=== PATIENT | male | born 1955 | race Caucasian/White ===

== ENCOUNTER → 2023-12-19 | Outpatient (CLI) | payer MEDICARE, SELFPAY ==
--- NOTE | 2023-12-19 14:50 | ECHOD_ITS ---
Reason For Study: MURMUR Procedure This was a 2D Doppler, Color Flow transthoracic echocardiogram. Exam performed in department. Left Ventricle Normal LV size. Left ventricular systolic function is normal. The estimated ejection fraction is 65 %. Stage 1 diastolic dysfunction. No regional wall motion abnormalities noted. Right Ventricle Normal RV size. Normal systolic function. Atria Normal left atrium. Normal right atrium. Mitral Valve Normal mitral valve. Tricuspid Valve Normal tricuspid valve. Aortic Valve Normal aortic valve. Pulmonic Valve Normal pulmonic valve. Great Vessels Normal aortic root. The pulmonary artery is normal size. Inferior vena cava collapse with respiration. Pericardium/Pleural No pericardial effusion. MMode/2D Measurements & Calculations LAV(MOD-sp4): 30.4 ml LVAd ap4: 27.0 cm2 SV(MOD-sp4): 56.1 ml LVLd ap4: 6.7 cm EDV(MOD-sp4): 87.7 ml EDV(sp4-el): 92.2 ml LVAs ap4: 15.4 cm2 LVLs ap4: 6.2 cm ESV(MOD-sp4): 31.5 ml ESV(sp4-el): 32.4 ml EF(MOD-sp4): 64.0 % EF(sp4-el): 64.9 % SV(sp4-el): 59.9 ml LA A4 area: 13.5 cm2 Time Measurements MV dec time: 0.22 sec Doppler Measurements & Calculations MV E max bob: 55.5 cm/sec Lat Peak E' Bob: 10.8 cm/sec Med Peak E' Bob: 6.5 cm/sec MV A max bob: 72.8 cm/sec E/E' lat: 5.2 E/E' med: 8.6 MV E/A: 0.76 Ao V2 max: 106.4 cm/sec LV V1 max: 97.1 cm/sec MV dec slope: 256.0 cm/sec2 Ao max P.5 mmHg LV V1 max P.8 mmHg Ao V2 mean: 67.0 cm/sec LV V1 mean P.7 mmHg Ao mean P.2 mmHg LV V1 mean: 58.3 cm/sec Ao V2 VTI: 23.6 cm LV V1 VTI: 20.8 cm AV (velocity ratio): 0.88 MR max bob: 79.7 cm/sec PA V2 max: 78.9 cm/sec MR max P.5 mmHg PA V2 mean: 56.0 cm/sec MR mean bob: 46.4 cm/sec MR mean P.99 mmHg MR VTI: 29.1 cm ECHO/Echo Complete Interpretation Summary Normal LV size. Left ventricular systolic function is normal. The estimated ejection fraction is 65 %. Stage 1 diastolic dysfunction. Ordering Physician: Damir Hairston Referring Physician: Damir Hairston Performed By: Ange Pearson RCS
== END | disposition home or self-care (01) ==
PROVIDERS: PCP Family Medicine; Referring Provider Internal Medicine Cardiovascular Disease; Visit Provider Internal Medicine Cardiovascular Disease
DX: I47.10 Supraventricular tachycardia, unspecified (principal); R01.1 Cardiac murmur, unspecified
CPT/HCPCS: 93306

== ENCOUNTER → 2025-01-12 | Outpatient (CLI) | payer MEDICARE, SELFPAY ==
[2025-01-12 15:59] LABS: Absolute Neutrophil Count 5.7 X10^3/uL (2.0-7.7); Basophil# 0.06 X10^3/uL; Basophil% 0.7 % (0-1); Eosinophil# 0.26 X10^3/uL; Hematocrit 44.3 % (40-54); Hemoglobin 15.4 g/dL (13.0-16.5); Lymphocyte % 20.6 % (19-41); Mean Corp Hgb Conc 34.8 g/dL (32-36); Mean Corpuscular Hgb 31.2 pg (27.0-32.0); Mean Corpuscular Volume 89.9 fL (80-94); Monocyte# 0.87 X10^3/uL; NRBC Flagged by Analyzer 0 % (0-5); Neutrophil # 5.72 X10^3/uL (2.7-7.7); Neutrophil % 65.5 % (47-70); Platelet Count 267 K/mm3 (150-450); RBC Distribution Width CV 13.9 % (11.6-14.6); RBC Distribution Width SD 45.5 fl (35.1-43.9); Red Blood Count 4.93 M/mm3 (4.6-6.2); White Blood Count 8.7 K/mm3 (4.4-11.0)
[2025-01-12 16:38] LABS: Thyroid Stim Hormone (TSH) 0.772 uIU/mL (0.300-4.200)
[2025-01-12 17:16] LABS: Anion Gap 10 (5-15); BUN 17 mg/dL (4-19); BUN/Creat Ratio 19.6 RATIO (10-20); Calcium,Total 9.9 mg/dL (7.6-11.0); Carbon Dioxide 26.5 mmol/L (21.0-32.0); Chloride 104 mmol/L (98-108); Creatinine, Serum 0.87 mg/dL (0.70-1.20); EST Glomerular Filtration Rate 94 (>60); Glucose 74 mg/dL (70-99); Potassium 4.2 mmol/L (3.3-5.1); Sodium Level 140 mmol/L (133-145)
== END | disposition home or self-care (01) ==
LOC: LAB 15:31
PROVIDERS: PCP Family Medicine; Referring Provider Physician Assistant Medical; Visit Provider Physician Assistant Medical
DX: R06.09 Other forms of dyspnea (principal); R53.83 Other fatigue
CPT/HCPCS: 36415; 80048; 84443; 85025

== ENCOUNTER 2025-02-01 17:26 | Emergency (ER) | payer MEDICARE, SELFPAY ==
[2025-02-01 17:27] VITALS: BP 154/78; PULSE 89; RESP 16; TEMP 36.6; O2SAT 99; BMI 23.6
--- NOTE | 2025-02-01 18:55 | EX.ED.DYSGE1 ---
HPI History of Present Illness Chief Complaint: Complaint Informant: patient Onset/Context/Timing Onset: Today Context: Gradual Onset Timing: Continuous Quality: Burning Location: Urethra Worsened by: Attempted urination Relieved by: Nothing Narrative Narrative: Patient presents with urinary retention that began today. Patient had urinary retention last week and had a Figueroa catheter placed at a different emergency department. Patient followed up with his urologist, Dr. Myers today who remove the Figueroa catheter. Patient states he has been unable to urinate over the past 9-1/2 hours. Patient denies any fevers or chills. Patient denies any nausea or vomiting. Patient states he does have some burning when he attempts to urinate. Patient denies any back pain or flank pain. [facility] Medical History Fatigue EAGLE (dyspnea on exertion) Abnormality of gait Ataxia Stroke SVT (supraventricular tachycardia) Pulmonary embolism and infarction Snoring Intracranial abscess Essential hypertension Elevated PSA Home Medications ?Medication ?Instructions ?Recorded ?Last Taken ?Type amlodipine 10 mg tablet (Norvasc) 10 mg PO DAILY 10/20/23 02/01/25 History aspirin 81 mg tablet,delayed 81 mg PO DAILY 10/20/23 02/01/25 History release (Adult Aspirin Regimen) lisinopril 20 mg tablet 20 mg PO DAILY 10/20/23 02/01/25 History garlic 300 mg capsule 300 mg PO DAILY 11/10/23 02/01/25 History ciprofloxacin HCl 500 mg tablet 500 mg PO BID #6 TABLETS 02/01/25 Unknown Rx clotrimazole 1 % topical cream 1 applic topical BID 02/01/25 Unknown History finasteride 5 mg tablet 5 mg PO DAILY 02/01/25 02/01/25 History tamsulosin 0.4 mg capsule 0.4 mg PO QHS 02/01/25 01/31/25 History terbinafine HCl 250 mg tablet 250 mg PO DAILY 02/01/25 Unknown History Allergy/AdvReac Type Severity Reaction Status Date / Time No Known Allergies Allergy Verified 01/12/25 15:01 Family History Father Cancer Mother Alzheimer's disease Surgical History History of colonoscopy History of brain surgery Social History Smoking Status: Former smoker Smokeless tobacco user: other alcohol intake: never substance use type: does not use caffeine: Yes Type: coffee Number of servings: 3 ROS ROS ED Constitutional Constitutional ED: Denies chills or fever(s) Eyes Eyes: Denies blurry vision or change in vision ENT ENT ED: Denies rhinorrhea or sore throat Cardiovascular Cardiovascular: Denies chest pain or palpitations Respiratory/Chest Respiratory/Chest: Denies cough or dyspnea Gastrointestinal Gastrointestinal: Denies nausea or vomiting Genitourinary Genitourinary ED: Reports dysuria; Denies hematuria Musculoskeletal Musculoskeletal: Denies back pain or neck pain Integumentary Denies abscess or rash Neurologic Neurologic: Denies headache(s) or weakness Allergic/Immunologic Allergic/Immunologic ED: Denies mouth swelling or urticaria EXAM Physical Exam Const Vital Signs: 02/01/25 17:27 02/01/25 19:26 02/01/25 20:47 Temperature 98 F 98 F Temperature Source Oral Pulse Rate 89 67 80 Respiratory Rate 16 18 18 Blood Pressure 154/78 H 148/87 H 160/75 H Blood Pressure Mean 103 107 103 Pulse Ox 99 95 99 Oxygen Delivery Method Room Air Room Air Positive well nourished and well developed General Appearance ED: well developed and NAD HEENT Reports moist mucous membranes Neck supple and no JVD Resp normal respiratory effort and clear to auscultation bilaterally Cardio regular rate and regular rhythm GI non-tender and non-distended Palpation: soft Neuro oriented x3, CN's II-XII intact bilaterally and no sensory deficits noted Sensorium / Orientation: alert Motor Exam: strength 5/5 throughout Psych mental status grossly normal MDM MDM MDM Narrative Medical decision making narrative: Differential diagnosis includes urinary retention, urinary tract infection, and BPH. Urinalysis will be obtained to assess for urinary tract infection. Bladder scan was performed and there was 653 cc in his bladder. Figueroa catheter was inserted. There was 700 cc of urine output. History & Record Review Additional record(s) reviewed:: Prior outpatient record and Prior labs Lab Data Attestation: I reviewed the patient's lab results. Lab results narrative: Urinalysis was reviewed. Leukocyte esterase was 25. There are 10-25 white blood cells and 3+ bacteria. Nitrates were negative. Labs: Laboratory Results - last 24 hr 02/01/25 19:00 Urine Color Yellow Urine Clarity Sl Cldy Urine pH 7.0 Ur Specific [place] 1.010 Urine Protein 30 H Urine Glucose (UA) Normal Urine Ketones Negative Urine Occult Blood 50 H Urine Nitrite Negative Urine Bilirubin Negative Urine Urobilinogen Normal Ur Leukocyte Esterase 25 H Urine RBC 0 SEEN Urine WBC 10-25 SEEN Ur Squamous Epith Cells 0-5 SEEN Amorphous Sediment 1+ Urine Bacteria 3+ Hyaline Casts 0-5 SEEN Urine Mucus 0 SEEN Additional Tests and Interventions Additional Tests or Interventions: Urine culture was ordered. Treatment and Re-Evaluation :: Patient was advised of his findings. Patient was given a leg bag. Patient was given a dose of Cipro here. Patient was given a prescription for a short course of Cipro. Patient was instructed to follow-up with Dr. Myers in 3 to 5 days. Patient was instructed to return if worse in any way. Patient understood and was agreeable with the plan. All questions were answered. Discharge Plan Triage Chief Complaint: Complaint ED Provider: Bjorn Lewis Dx/Rx/DC Orders Clinical Impression: Acute urinary retention, Urinary tract infection, Essential hypertension Instructions: ED Urinary Retention, Male Prescriptions: New ciprofloxacin HCl 500 mg tablet 500 mg PO BID Qty: 6 0RF No Action amlodipine [Norvasc] 10 mg tablet 10 mg PO DAILY lisinopril 20 mg tablet 20 mg PO DAILY aspirin [Adult Aspirin Regimen] 81 mg tablet,delayed release (DR/EC) 81 mg PO DAILY garlic 300 mg capsule 300 mg PO DAILY clotrimazole 1 % cream 1 applic topical BID terbinafine HCl 250 mg tablet 250 mg PO DAILY Patient Comments: HAS NOT TAKEN YET Rx Instructions: PT TAKES FIRST OF MONTH tamsulosin 0.4 mg capsule 0.4 mg PO QHS finasteride 5 mg tablet 5 mg PO DAILY Primary Care Provider: Matthew Alford Referrals: Wally Myers MD [Med Staff - Active Staff] - 3-5 Days Matthew Alford MD [Primary Care Provider] - Print Language: Eritrean Disposition Disposition: Home, Self Care Discharge Date/Time: 02/01/25 20:47
[2025-02-01 19:12] LABS: Mucous, Urine 0 SEEN /hpf (<or=2+); Red Blood Cells-Urine 0 SEEN /hpf (0-5)
[2025-02-01 19:19] LABS: Glucose, Dipstick Normal (Normal); Ketone-Dipstick Negative (Negative); Leukocyte Esterase-Dipstick 25 /ul (Negative); Nitrite-Dipstick Negative (Negative); Occult Blood-Urine 50 /ul (Negative); Protein-Dipstick 30 mg/dl (Negative); Urine Bilirubin Dipstick Negative (Negative); Urine Urobilinogen Normal (Normal)
[2025-02-01 19:26] VITALS: BP 148/87; PULSE 67; RESP 18; O2SAT 95
[2025-02-01 19:27] LABS: Color, Urine Yellow (Yellow); Urine Clarity Sl Cldy (Clear)
[2025-02-01 19:59] LABS: White Blood Cells 10-25 SEEN /hpf (0-5)
[2025-02-01 20:00] LABS: Bacteria 3+ /hpf (None Seen)
[2025-02-01 20:01] LABS: Squamous Epithelial Cells - UA 0-5 SEEN /hpf (0-5)
[2025-02-01 20:03] LABS: Amorphous Sediment 1+; Hyaline Cast 0-5 SEEN /lpf (0-5)
[2025-02-01] MEDS: Ciprofloxacin 500 MG Tablet PO (20:45)
[2025-02-01 20:47] VITALS: BP 160/75; PULSE 80; RESP 18; TEMP 36.6; O2SAT 99
== END 2025-02-01 20:47 | disposition home or self-care (01) ==
PROVIDERS: Emergency Provider Emergency Medicine; PCP Family Medicine; Visit Provider Emergency Medicine
DX: R33.9 Retention of urine, unspecified (principal); N39.0 Urinary tract infection, site not specified; I10 Essential (primary) hypertension; Z87.891 Personal history of nicotine dependence; Z79.82 Long term (current) use of aspirin; Z79.899 Other long term (current) drug therapy; Z86.73 Personal history of transient ischemic attack (TIA), and cerebral infarction without residual deficits
CPT/HCPCS: 81001; 87077; 87086; 87088; 87186; 99282

== ENCOUNTER 2025-02-05 13:12 | Emergency (ER) | payer MEDICARE, SELFPAY ==
[2025-02-05 13:13] VITALS: BP 165/78; PULSE 64; RESP 16; TEMP 36.4; O2SAT 98; BMI 24.3
--- NOTE | 2025-02-05 14:12 | EDS_ITS ---
HPI History of Present Illness Chief Complaint: Complaint Detail of Chief Complaint: Small knot of blood in the Figueroa bag. Informant: patient Pain Onset: Today Context: Gradual Onset Current Severity: Mild Maximum Severity: Mild Narrative Narrative: 69-year-old male history of CVA, PE, hypertension on aspirin. On the was in [place] had urinary retention. A Figueroa catheter placed. Followed up with local urology. Had his catheter removed and he developed urinary retention again. Presented this emergency department on 520 and 18 [place] Figueroa catheter placed. He was started on Cipro twice a day which she just finished yesterday. Today noticed a small amount of blood in his urine. Denies any other co mplaints. Prior similar symptoms: No Recent Illness/Hospitalization: No PFSH [facility] Medical History Fatigue EAGLE (dyspnea on exertion) Abnormality of gait Ataxia Stroke SVT (supraventricular tachycardia) Pulmonary embolism and infarction Snoring Intracranial abscess Essential hypertension Elevated PSA Home Medications ?Medication ?Instructions ?Recorded ?Last Taken ?Type amlodipine 10 mg tablet (Norvasc) 10 mg PO DAILY 10/2002/01/25 History aspirin 81 mg tablet,delayed 81 mg PO DAILY 10/20/23 0 02/01/25 History release (Adult Aspirin Regimen) lisinopril 20 mg tablet 20 mg PO DAILY 10/20/2301/14 History garlic 300 mg capsule 300 mg PO DAILY 11/10/23 History ciprofloxacin HCl 500 mg tablet 500 mg PO BID #6 TABLE TS 02/01/25 Unknown Rx clotrimazole 1 % topical cream 1 applic topical BID Unknown History finasteride 5 mg tablet 5 mg PO DAILY 02/01/2502/01 History tamsulosin 0.4 mg capsule 0.4 mg PO QHS 02/01/2501/31 History terbinafine HCl 250 mg tablet 250 mg PO DAILY 02/01/25 Unknown History Allergy/AdvReac Type Severity Reaction Status Date / Time No Known Allergies Allergy Verified 01/12/25 15:01 Family History Father Cancer Mother Alzheimer's disease Surgical History History of colonoscopy History of brain surgery Social History Smoking Status: Former smoker Smokeless tobacco user: other alcohol intake: never substance use type: does not use caffeine: Yes Type: coffee Number of servings: 3 ROS ROS ED ROS Narrative Denies recent illness. Constitutional Constitutional ED: Denies chills or fever(s) ENT ENT ED: Denies ear pain Cardiovascular Cardiovascular: Denies chest pain
--- NOTE | 2025-02-05 14:12 | EX.ED.GUMALE ---
HPI History of Present Illness Chief Complaint: Complaint Detail of Chief Complaint: Small knot of blood in the Figueroa bag. Informant: patient Pain Onset: Today Context: Gradual Onset Current Severity: Mild Maximum Severity: Mild Narrative Narrative: 69-year-old male history of CVA, PE, hypertension on aspirin. On the was in [place] had urinary retention. A Figueroa catheter placed. Followed up with local urology. Had his catheter removed and he developed urinary retention again. Presented this emergency department on 520 and 18 [place] Figueroa catheter placed. He was started on Cipro twice a day which she just finished yesterday. Today noticed a small amount of blood in his urine. Denies any other complaints. Prior similar symptoms: No Recent Illness/Hospitalization: No PFSH [facility] Medical History Fatigue EAGLE (dyspnea on exertion) Abnormality of gait Ataxia Stroke SVT (supraventricular tachycardia) Pulmonary embolism and infarction Snoring Intracranial abscess Essential hypertension Elevated PSA Home Medications ?Medication ?Instructions ?Recorded ?Last Taken ?Type amlodipine 10 mg tablet (Norvasc) 10 mg PO DAILY 10/20/23 02/01/25 History aspirin 81 mg tablet,delayed 81 mg PO DAILY 10/20/23 02/01/25 History release (Adult Aspirin Regimen) lisinopril 20 mg tablet 20 mg PO DAILY 10/20/23 02/01/25 History garlic 300 mg capsule 300 mg PO DAILY 11/10/23 02/01/25 History ciprofloxacin HCl 500 mg tablet 500 mg PO BID #6 TABLETS 02/01/25 Unknown Rx clotrimazole 1 % topical cream 1 applic topical BID 02/01/25 Unknown History finasteride 5 mg tablet 5 mg PO DAILY 02/01/25 02/01/25 History tamsulosin 0.4 mg capsule 0.4 mg PO QHS 02/01/25 01/31/25 History terbinafine HCl 250 mg tablet 250 mg PO DAILY 02/01/25 Unknown History Allergy/AdvReac Type Severity Reaction Status Date / Time No Known Allergies Allergy Verified 01/12/25 15:01 Family History Father Cancer Mother Alzheimer's disease Surgical History History of colonoscopy History of brain surgery Social History Smoking Status: Former smoker Smokeless tobacco user: other alcohol intake: never substance use type: does not use caffeine: Yes Type: coffee Number of servings: 3 ROS ROS ED ROS Narrative Denies recent illness. Constitutional Constitutional ED: Denies chills or fever(s) ENT ENT ED: Denies ear pain Cardiovascular Cardiovascular: Denies chest pain Respiratory/Chest Respiratory/Chest: Denies cough Gastrointestinal Gastrointestinal: Denies abdominal pain Genitourinary Genitourinary ED: Reports hematuria; Denies dysuria Musculoskeletal Musculoskeletal: Denies arthralgias Integumentary Denies abscess Neurologic Neurologic: Denies headache(s) Psychiatric Psychiatric: Denies anxiety or depression Endocrine Endocrinology: Denies polydipsia Hematologic/Lymphatic Hematologic/Lymphatic: Denies easy bleeding, easy bruising or lymphadenopathy Allergic/Immunologic Allergic/Immunologic ED: Denies mouth swelling, tongue swelling or urticaria EXAM Physical Exam Narrative Exam Narrative: Appearance of 9-year-old male. Vital signs stable afebrile. HEENT exam pupils round react light. Mytrex members. Lungs clear to auscultation bilateral. Heart regular rhythm rate about 65 no murmur. Chest wall ribs nontender. Abdomen soft nontender. External exam shows 18 [place] Figuero[address] catheter in place. Mildly cloudy. There is no gross clots or bright red blood currently in the Figueroa bag. His urethra is unremarkable with the Figueroa in place. Moving all 4 extremities. Nontender no edema. Neurologically he is awake and alert. Answer questions following commands. Const Vital Signs: 02/05/25 13:13 Temperature 97.6 F L Temperature Source Oral Pulse Rate 64 Respiratory Rate 16 Blood Pressure 165/78 H Blood Pressure Mean 107 Pulse Ox 98 Oxygen Delivery Method Room Air Positive well nourished and well developed; Negative for obese, cachectic, contractures or unkempt General Appearance ED: well developed; Negative for unkempt, cachectic, contractures or pallor Nutritional Appearance: Negative for cachectic or obese HEENT Reports moist mucous membranes normocephalic and atraumatic Eyes PERRL and EOMs intact bilaterally General Eye ED: Negative for pale conjunctiva or scleral icterus Neck no lymphadenopathy, supple and no JVD General: Negative for tenderness Resp normal respiratory effort and clear to auscultation bilaterally Effort and Inspection: Negative for retractions Auscultation: Negative for rales, rhonchi, wheezes or diminished lung sounds Cardio regular rate, regular rhythm, S1 normal heart sound, S2 normal heart sound and no murmurs Rate: Negative for bradycardia or tachycardic Rhythm: Negative for abnormal rhythm Heart Sounds: Negative for other GI non-tender, non-distended and no masses Inspection: Negative for abdominal distention Auscultation: normoactive bowel sounds Palpation: soft; Negative for tender or guarding no CVA tenderness Back/Spine no CVA tenderness Extremity normal to inspection General Extremety ED: Negative for edema, pulses abnormal or tenderness General Extremity: Negative for edema or pulses abnormal Neuro oriented x3, CN's II-XII intact bilaterally, moves all extremities and no focal motor deficits Sensorium / Orientation: alert, oriented to person, oriented to place and oriented to time; Negative for orientation impaired, confused, lethargic or stuporous Motor Exam: strength 5/5 throughout Psych mental status grossly normal Appearance: Negative for unkempt Attitude: No agitated Mood & Affect: Negative for depressed, anxious or tearful Thought Process: normal thought process Thought Content: normal thought content Skin General Skin Exam: Negative for jaundice or pallor Trauma: Negative for abrasion or laceration MDM MDM MDM Narrative Medical decision making narrative: 69-year-old male has a small amount of blood in his Figueroa. He had Figueroa placed on the removed he failed and needed Figueroa replaced again for recurrent urinary retention on the and even just came off antibiotics for UTI that was found the also. His exam otherwise is benign. Unremarkable blood counts about 4 days ago. I do not think he needs labs other than his urine checked to see if he still has the infection. Will irrigate his Figueroa to make sure it is flowing well. It appears to be there is urine in the bag. There is no large blood or clots. Repeat exam no change. Given the patient just finished his recent antibiotic dose for UTI I do not think he needs any additional antibiotic. He will follow-up with Dr. Myers of urology. Patient is doing well at 4:15 PM. He is comfortable discharge. History & Record Review Discussion w/independent historian: Patient Additional record(s) reviewed:: Prior inpatient record, Prior outpatient record, Prior ED visit and Prior labs Lab Data Attestation: I reviewed the patient's lab results. Lab results narrative: Urinalysis shows 250 occult blood. No nitrates. 50-100 red cells. No white cells. 2+ bacteria. Labs: Laboratory Results - last 24 hr 02/05/25 14:15 Urine Color Yellow Urine Clarity Cloudy Urine pH 8.0 Ur Specific [place] 1.015 Urine Protein 30 H Urine Glucose (UA) Normal Urine Ketones Negative Urine Occult Blood 250 H Urine Nitrite Negative Urine Bilirubin Negative Urine Urobilinogen Normal Ur Leukocyte Esterase 25 H Urine RBC 50-100 SEEN Urine WBC 0-5 SEEN Ur Squamous Epith Cells 0-5 SEEN Urine Bacteria 2+ Urine Mucus 1+ Discharge Plan Triage Chief Complaint: Complaint ED Provider: Billy Bajwa Dx/Rx/DC Orders Clinical Impression: Hematuria, History of BPH, Figueroa catheter in place, History of UTI Instructions: ED Hematuria Prescriptions: No Action amlodipine [Norvasc] 10 mg tablet 10 mg PO DAILY lisinopril 20 mg tablet 20 mg PO DAILY aspirin [Adult Aspirin Regimen] 81 mg tablet,delayed release (DR/EC) 81 mg PO DAILY garlic 300 mg capsule 300 mg PO DAILY clotrimazole 1 % cream 1 applic topical BID terbinafine HCl 250 mg tablet 250 mg PO DAILY Patient Comments: HAS NOT TAKEN YET Rx Instructions: PT TAKES FIRST OF MONTH tamsulosin 0.4 mg capsule 0.4 mg PO QHS finasteride 5 mg tablet 5 mg PO DAILY ciprofloxacin HCl 500 mg tablet 500 mg PO BID Qty: 6 0RF Primary Care Provider: Matthew Alford Referrals: Wally Myers MD [Med Staff - Active Staff] - Keep Melina appointment Matthew Alford MD [Primary Care Provider] - Activity Restrictions/Additional Instructions: Follow-up with your urologist on Friday. Plenty of fluids. Often people have bleeding when they have a Figueroa catheter. And a recent urinary tract infection. If the bleeding gets a lot worse and there is large clots or the catheter is not working return otherwise just follow-up with the urologist. Print Language: Macedonian Disposition Disposition: Home, Self Care
[2025-02-05 14:21] LABS: Color, Urine Yellow (Yellow); Glucose, Dipstick Normal (Normal); Ketone-Dipstick Negative (Negative); Leukocyte Esterase-Dipstick 25 /ul (Negative); Nitrite-Dipstick Negative (Negative); Occult Blood-Urine 250 /ul (Negative); Protein-Dipstick 30 mg/dl (Negative); Specific Gravity, Urine 1.015 (1.002-1.030); Urine Bilirubin Dipstick Negative (Negative); Urine Clarity Cloudy (Clear); Urine Urobilinogen Normal (Normal)
[2025-02-05 14:31] LABS: Red Blood Cells-Urine 50-100 SEEN /hpf (0-5); Squamous Epithelial Cells - UA 0-5 SEEN /hpf (0-5); White Blood Cells 0-5 SEEN /hpf (0-5)
[2025-02-05 14:32] LABS: Bacteria 2+ /hpf (None Seen); Mucous, Urine 1+ /hpf (<or=2+)
[2025-02-05 15:13] VITALS: BP 156/79; PULSE 65; RESP 18; O2SAT 98
[2025-02-05 16:34] VITALS: BP 160/69; PULSE 62; RESP 18; TEMP 36.4; O2SAT 99
== END 2025-02-05 16:35 | disposition home or self-care (01) ==
PROVIDERS: Emergency Provider Emergency Medicine; PCP Family Medicine; Visit Provider Emergency Medicine
DX: R31.9 Hematuria, unspecified (principal); Z87.891 Personal history of nicotine dependence; Z86.73 Personal history of transient ischemic attack (TIA), and cerebral infarction without residual deficits
CPT/HCPCS: 81001; 99282

== ENCOUNTER 2025-02-16 13:52 | Observation (INO) | payer MEDICARE, SELFPAY ==
--- NOTE | 2025-02-11 09:59 | PAT.ANE_ITS ---
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 When Was Last Pacemaker Check QUESTION #4 FULL TEXT: You/Your Family Experience fever (hyperthermia) with Anesthesia Last Oral Intake Last Oral intake: Last Oral Intake NPO since Meds taken in AM with sips of water? Meds patient instructed to take am of surgery PONV PONV - utility bill complaints investigator: PONV - utility bill complaints investigator Female No 02/10/25 16:54 HX of Motion Sickness No 02/10/25 16:54 HX of N/V After Surgery No 02/10/25 16:54 Non-Smoker No 02/10/25 16:54 Duration of Surgery greater Yes 02/10/25 16:54 than 60 minutes Number of Risk Factors 1 02/10/25 16:54 PONV Score Low Risk 02/10/25 16:54 Height & Weight Height & Weight: Anesthesia: Height & Weight Height 5 ft 9 in 02/05/25 13:13 Respiratory Assessment Respiratory Assessment - utility bill complaints investigator: Respiratory Tract Infection Hx - utility bill complaints investigator Hx Respiratory Tract Infection No 02/10/25 16:54 STOP Sleep Apnea STOP Sleep Apnea - utility bill complaints investigator: STOP Sleep Apnea - utility bill complaints investigator Hx Hypertension Yes: PER PT, CONTROLLED ON 02/10/25 16:54 MEDS Hx Sleep Apnea No 02/10/25 16:54 CPAP BIPAP Do you snore loudly (louder No 02/10/25 16:54 than talking or can be heard Do you often feel tired/ No 02/10/25 16:54 fatigued/ sleepy during daytime? Has anyone observed you stop No 02/10/25 16:54 breathing during sleep? STOP Results Negative 02/10/25 16:54 QUESTION #5 FULL TEXT : Do you snore loudly (louder than talking or can be heard through closed doors)? 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 Specify any problems Hx of Preganancy in last 3 N/A 02/10/25 16:54 Months Nurse Filling Out Transfusion MGRIFFITH 02/10/25 16:54 & Questions: Date: 02/10/25 02/10/25 16:54 Time: 16:57 02/10/25 16:54 Patient unable to answer at this time (ie. confused, unrespo /Reproduction History /Reproductive History - utility bill complaints investigator: /Reproductive Hx- utility bill complaints investigator Hx Now Gestational Age (in weeks): EDC: Hx Hx Para Hx Section SAB [facility] Medical History (Updated 02/10/25 @ 17:09 by Abi Lew) Wears glasses Indwelling urethral catheter present Injury of head and neck TIA (transient ischemic attack) Former smoker History of echocardiogram Cardiology follow-up encounter Fatigue EAGLE (dyspnea on exertion) Abnormality of gait Ataxia Stroke SVT (supraventricular tachycardia) Pulmonary embolism and infarction Snoring Intracranial abscess Essential hypertension Elevated PSA Home Medications ?Medication ?Instructions ?Recorded ?Last Taken ?Type amlodipine 10 mg tablet (Norvasc) 10 mg PO DAILY 10/2002/01/25 History aspirin 81 mg tablet,delayed 81 mg PO DAILY 10/20/23 0 02/01/25 History release (Adult Aspirin Regimen) lisinopril 20 mg tablet 20 mg PO DAILY 10/20/23 05/ History clotrimazole 1 % topical cream 1 applic topical BID Unknown History finasteride 5 mg tablet 5 mg PO DAILY 02/01/2502/01 History tamsulosin 0.4 mg capsule 0.4 mg PO QHS 02/01/2501/31 History terbinafine HCl 250 mg tablet 250 mg PO DAILY 02/01/25 Unknown History garlic 5 mg PO DAILY 02/10/25 Unkno wn History Allergy/AdvReac Type Severity Reaction Status Date / Time No Known Allergies Allergy Verified 02/10/25 16:48
--- NOTE | 2025-02-11 09:59 | PAT.ANESEVAL ---
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 When Was Last Pacemaker Check QUESTION #4 FULL TEXT: You/Your Family Experience fever (hyperthermia) with Anesthesia Last Oral Intake Last Oral intake: Last Oral Intake NPO since Meds taken in AM with sips of water? Meds patient instructed to take am of surgery PONV PONV - process inspector: PONV - process inspector Female No 02/10/25 16:54 HX of Motion Sickness No 02/10/25 16:54 HX of N/V After Surgery No 02/10/25 16:54 Non-Smoker No 02/10/25 16:54 Duration of Surgery greater Yes 02/10/25 16:54 than 60 minutes Number of Risk Factors 1 02/10/25 16:54 PONV Score Low Risk 02/10/25 16:54 Height & Weight Height & Weight: Anesthesia: Height & Weight Height 5 ft 9 in 02/05/25 13:13 Respiratory Assessment Respiratory Assessment - process inspector: Respiratory Tract Infection Hx - process inspector Hx Respiratory Tract Infection No 02/10/25 16:54 STOP Sleep Apnea STOP Sleep Apnea - process inspector: STOP Sleep Apnea - process inspector Hx Hypertension Yes: PER PT, CONTROLLED ON 02/10/25 16:54 MEDS Hx Sleep Apnea No 02/10/25 16:54 CPAP BIPAP Do you snore loudly (louder No 02/10/25 16:54 than talking or can be heard Do you often feel tired/ No 02/10/25 16:54 fatigued/ sleepy during daytime? Has anyone observed you stop No 02/10/25 16:54 breathing during sleep? STOP Results Negative 02/10/25 16:54 QUESTION #5 FULL TEXT : Do you snore loudly (louder than talking or can be heard through closed doors)? 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 Specify any problems Hx of Preganancy in last 3 N/A 02/10/25 16:54 Months Nurse Filling Out Transfusion MGRIFFITH 02/10/25 16:54 & Questions: Date: 02/10/25 02/10/25 16:54 Time: 16:57 02/10/25 16:54 Patient unable to answer at this time (ie. confused, unrespo /Reproduction History /Reproductive History - process inspector: /Reproductive Hx- process inspector Hx Now Gestational Age (in weeks): EDC: Hx Hx Para Hx Section SAB [facility] Medical History (Updated 02/10/25 @ 17:09 by Abi Lew) Wears glasses Indwelling urethral catheter present Injury of head and neck TIA (transient ischemic attack) Former smoker History of echocardiogram Cardiology follow-up encounter Fatigue EAGLE (dyspnea on exertion) Abnormality of gait Ataxia Stroke SVT (supraventricular tachycardia) Pulmonary embolism and infarction Snoring Intracranial abscess Essential hypertension Elevated PSA Home Medications ?Medication ?Instructions ?Recorded ?Last Taken ?Type amlodipine 10 mg tablet (Norvasc) 10 mg PO DAILY 10/20/23 02/01/25 History aspirin 81 mg tablet,delayed 81 mg PO DAILY 10/20/23 02/01/25 History release (Adult Aspirin Regimen) lisinopril 20 mg tablet 20 mg PO DAILY 10/20/23 02/01/25 History clotrimazole 1 % topical cream 1 applic topical BID 02/01/25 Unknown History finasteride 5 mg tablet 5 mg PO DAILY 02/01/25 02/01/25 History tamsulosin 0.4 mg capsule 0.4 mg PO QHS 02/01/25 01/31/25 History terbinafine HCl 250 mg tablet 250 mg PO DAILY 02/01/25 Unknown History garlic 5 mg PO DAILY 02/10/25 Unknown History Allergy/AdvReac Type Severity Reaction Status Date / Time No Known Allergies Allergy Verified 02/10/25 16:48 Family History Father Cancer Mother Alzheimer's disease Surgical History History of colonoscopy History of brain surgery Social History Smoking Status: Former smoker Smokeless tobacco user: other alcohol intake: never substance use type: does not use caffeine: Yes Type: coffee Number of servings: 3 Audit: Pertinent Findings Pertinent Findings EKG Perinent findings: November 10, 2023. Normal sinus rhythm. Abnormal P axis. 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 Voltage criteria for LVH. Old anterior septal infarct. Nonspecific ST depression plus nonspecific T abnormalities. Echo (EF%) pertinent findings: December 19, 2023. EF of 65%. No aortic stenosis noted. Consult pertinent findings: January 12, 2025. Maurizio SMITH. 1. SVT?acute-noted on event recorder back in July 2022. Patient is unaware of any type of arrhythmia. Never diagnosed with A-fib. Plan for wearable device to identify any A-fib. 2. Dyspnea on exertion?acute-increasing shortness of breath and fatigue with exertion. Plan for nuclear stress test to evaluate for underlying ischemia. 3. Fatigue?acute-check stress. Check labs. Recommendation Anesthesia Recommendation Anesthesia recommendation: F/U recommended (Patient is pending a nuclear stress test on February 18.. We should wait for the results prior to proceeding with the surgery.)
--- NOTE | 2025-02-14 07:50 | EKG12_ITS ---
Test Reason : PREOP Blood Pressure : */* mmHG Vent. Rate : 59 BPM Atrial Rate : 59 BPM P-R Int : 154 ms QRS Dur : 128 ms QT Int : 408 ms P-R-T Axes : * -76 72 degrees QTcB Int : 403 ms Sinus bradycardia Left ventricular hypertrophy with QRS widening and repolarization abnormality Cannot rule out Septal infarct , age undetermined Abnormal ECG Confirmed by Damir Hairston ([id number]), staff editor JAMESON THAO ([id number]) on 02/14/2025 11:03:44 AM Referred By: Wally Myers Confirmed By: Damir Hairston
--- NOTE | 2025-02-15 17:29 | PAT.ANESEVAL ---
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 When Was Last Pacemaker Check QUESTION #4 FULL TEXT: You/Your Family Experience fever (hyperthermia) with Anesthesia Last Oral Intake Last Oral intake: Last Oral Intake NPO since Meds taken in AM with sips of water? Meds patient instructed to take am of surgery PONV PONV - water pollution specialist: PONV - water pollution specialist Female No 02/10/25 16:54 HX of Motion Sickness No 02/10/25 16:54 HX of N/V After Surgery No 02/10/25 16:54 Non-Smoker No 02/10/25 16:54 Duration of Surgery greater Yes 02/10/25 16:54 than 60 minutes Number of Risk Factors 1 02/10/25 16:54 PONV Score Low Risk 02/10/25 16:54 Height & Weight Height & Weight: Anesthesia: Height & Weight Height 5 ft 9 in 02/05/25 13:13 Respiratory Assessment Respiratory Assessment - water pollution specialist: Respiratory Tract Infection Hx - water pollution specialist Hx Respiratory Tract Infection No 02/10/25 16:54 STOP Sleep Apnea STOP Sleep Apnea - water pollution specialist: STOP Sleep Apnea - water pollution specialist Hx Hypertension Yes: PER PT, CONTROLLED ON 02/10/25 16:54 MEDS Hx Sleep Apnea No 02/10/25 16:54 CPAP BIPAP Do you snore loudly (louder No 02/10/25 16:54 than talking or can be heard Do you often feel tired/ No 02/10/25 16:54 fatigued/ sleepy during daytime? Has anyone observed you stop No 02/10/25 16:54 breathing during sleep? STOP Results Negative 02/10/25 16:54 QUESTION #5 FULL TEXT : Do you snore loudly (louder than talking or can be heard through closed doors)? 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 Specify any problems Hx of Preganancy in last 3 N/A 02/10/25 16:54 Months Nurse Filling Out Transfusion MGRIFFITH 02/10/25 16:54 & Questions: Date: 02/10/25 02/10/25 16:54 Time: 16:57 02/10/25 16:54 Patient unable to answer at this time (ie. confused, unrespo /Reproduction History /Reproductive History - water pollution specialist: /Reproductive Hx- water pollution specialist Hx Now Gestational Age (in weeks): EDC: Hx Hx Para Hx Section SAB [facility] Medical History (Updated 02/13/25 @ 00:01 by Background Daemon) Wears glasses Indwelling urethral catheter present Injury of head and neck TIA (transient ischemic attack) Former smoker History of echocardiogram Cardiology follow-up encounter Fatigue EAGLE (dyspnea on exertion) Abnormality of gait Ataxia Stroke SVT (supraventricular tachycardia) Pulmonary embolism and infarction Snoring Intracranial abscess Essential hypertension Elevated PSA Home Medications ?Medication ?Instructions ?Recorded ?Last Taken ?Type amlodipine 10 mg tablet (Norvasc) 10 mg PO DAILY 10/20/23 02/01/25 History aspirin 81 mg tablet,delayed 81 mg PO DAILY 10/20/23 02/01/25 History release (Adult Aspirin Regimen) lisinopril 20 mg tablet 20 mg PO DAILY 10/20/23 02/01/25 History clotrimazole 1 % topical cream 1 applic topical BID 02/01/25 Unknown History finasteride 5 mg tablet 5 mg PO DAILY 02/01/25 02/01/25 History tamsulosin 0.4 mg capsule 0.4 mg PO QHS 02/01/25 01/31/25 History terbinafine HCl 250 mg tablet 250 mg PO DAILY 02/01/25 Unknown History garlic 5 mg PO DAILY 02/10/25 Unknown History Allergy/AdvReac Type Severity Reaction Status Date / Time No Known Allergies Allergy Verified 02/10/25 16:48 Family History Father Cancer Mother Alzheimer's disease Surgical History History of colonoscopy History of brain surgery Social History Smoking Status: Former smoker Smokeless tobacco user: other alcohol intake: never substance use type: does not use caffeine: Yes Type: coffee Number of servings: 3 Audit: Pertinent Findings HISTORY of Pertinent Findings History of Pertinent Findings: EKG Pertinent Findings EKG Perinent findings November 10, 2023. Normal 02/11/25 11:26 sinus rhythm. Abnormal P axis. 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 Voltage criteria for LVH. Old anterior septal infarct. Nonspecific ST depression plus nonspecific T abnormalities. Echo Pertinent Findings Echo (EF%) pertinent findings December 19, 2023. EF of 65%. 02/11/25 11:20 No aortic stenosis noted. Consult Pertinent Findings Consult pertinent findings January 12, 2025. Maurizio 02/11/25 11:24 CAITLYN 1. SVT?acute-noted on event recorder back in July 2022. Patient is unaware of any type of arrhythmia. Never diagnosed with A-fib. Plan for wearable device to identify any A-fib. 2. Dyspnea on exertion? acute-increasing shortness of breath and fatigue with exertion. Plan for nuclear stress test to evaluate for underlying ischemia. 3. Fatigue?acute-check stress. Check labs. Pertinent Findings EKG Perinent findings: February 14, 2025. Sinus bradycardia. Left ventricle hypertrophy with QRS widening and repolarization abnormality. Cannot rule out septal infarct, age undetermined. Consult pertinent findings: February 15, 2025. Maurizio BRADY [address]. Dr. Hairston reviewed. Okay to proceed with surgery. Recommendation Anesthesia Recommendation Anesthesia recommendation: OPTIMIZED for anesthesia
[2025-02-16] VITALS (13 sets, daily range): BP systolic 112–149; BP diastolic 61–80; PULSE 53–72; RESP 16–18; TEMP 36.2–36.6; O2SAT 92–100; BMI 25.0
[2025-02-16] MEDS: Lactated Ringers 1,000 ML 15 ML IV (11:10)
--- NOTE | 2025-02-16 11:19 | PCM.PRE.AN2 ---
ASA Classification* ASA Classification ASA Classification: 3 Assessment & Plan Anesthesia* Anesthesia Assessment Anesthesia Assessment: Discussed sedation and/or anesthesia options, risks, benefits, and alternatives with patient/parents/legal guardian/POA. Questions invited. The patient/parents/legal guardian/POA seems to understand and agrees to proceed with anesthesia plan. Reviewed the physical assessment, medical history, allergy history and patient home medications list prior to surgery/procedure/anesthetic and documented any changes. Performed airway and anesthesia risk assessments. Anesthesia Type Anesthesia Type: General History Source History Obtained from:: Patient and Chart Anesthesia Focused Assessment* Temperature: 97.6 F Pulse Rate: 59 Blood Pressure: 148/65 Respiratory Rate: 16 Pulse Ox: 97 Airway Assessment Mouth opens: >3 cm Mallampati Score: II Teeth Condition: Intact and Missing (5 teeth missing) Neck Range of motion (ROM): Full ROM Focused Labs Anesthesia Preop lab: CBC WBC 8.7 K/mm3 (4.4-11.0) 01/12/25 15:39 01/12/25 RBC 4.93 M/mm3 (4.6-6.2) 01/12/25 15:39 01/12/25 Hgb 15.4 g/dL (13.0-16.5) 01/12/25 15:39 01/12/25 Hct 44.3 % (40-54) 01/12/25 15:39 01/12/25 Plt Count 267 K/mm3 (150-450) 01/12/25 15:39 01/12/25 CHEMISTRY Potassium 4.2 mmol/L (3.3-5.1) 01/12/25 15:39 01/12/25 Sodium 140 mmol/L (133-145) 01/12/25 15:39 01/12/25 BUN 17 mg/dL (4-19) 01/12/25 15:39 01/12/25 Creatinine 0.87 mg/dL (0.70-1.20) 01/12/25 15:39 01/12/25 Glucose 74 mg/dL (70-99) 01/12/25 15:39 01/12/25 TSH 0.772 uIU/mL (0.300-4.200) 01/12/25 15:39 01/12/25 COAG Pre-Assessment Diagnosis/Proposed Procedure Planned Operative Procedure(s): (N/A) Cysto,TUR,Prostate,Olympus Anesthesia History Anesthesia History - parking meter collector: Anesthesia History - parking meter collector Hx Hospitalization No 02/10/25 16:54 Any Problems With Anesthesia No 02/10/25 16:54 Cholinesterase deficiency No 02/10/25 16:54 You/Your Family Experience No 02/10/25 16:54 fever (hyperthermia) with Relationship Recent Exposure to Contagious No 02/16/25 11:06 Disease Does patient have nerve No 02/10/25 16:54 stimulator Patient instructed to have device shut off --Does patient have Pacemaker No 02/16/25 11:06 or ICD? When Was Last Pacemaker Check QUESTION #4 FULL TEXT: You/Your Family Experience fever (hyperthermia) with Anesthesia Last Oral Intake Last Oral intake: Last Oral Intake NPO since 06:30 02/16/25 11:06 Meds taken in AM with sips of Yes 02/16/25 11:06 water? Meds patient instructed to amlodipine 02/16/25 11:06 take am of surgery PONV PONV - parking meter collector: PONV - parking meter collector Female No 02/10/25 16:54 HX of Motion Sickness No 02/10/25 16:54 HX of N/V After Surgery No 02/10/25 16:54 Non-Smoker No 02/10/25 16:54 Duration of Surgery greater Yes 02/10/25 16:54 than 60 minutes Number of Risk Factors 1 02/10/25 16:54 PONV Score Low Risk 02/10/25 16:54 Height & Weight Height & Weight: Anesthesia: Height & Weight Height 5 ft 9 in 02/16/25 11:06 Weight: 77 kg 02/16/25 11:06 Body Mass Index (BMI) 25.0 02/16/25 11:06 Respiratory Assessment Respiratory Assessment - parking meter collector: Respiratory Tract Infection Hx - parking meter collector Hx Respiratory Tract Infection No 02/10/25 16:54 STOP Sleep Apnea STOP Sleep Apnea - parking meter collector: STOP Sleep Apnea - parking meter collector Hx Hypertension Yes: PER PT, CONTROLLED ON 02/10/25 16:54 MEDS Hx Sleep Apnea No 02/10/25 16:54 CPAP BIPAP Do you snore loudly (louder No 02/10/25 16:54 than talking or can be heard Do you often feel tired/ No 02/10/25 16:54 fatigued/ sleepy during daytime? Has anyone observed you stop No 02/10/25 16:54 breathing during sleep? STOP Results Negative 02/10/25 16:54 QUESTION #5 FULL TEXT : Do you snore loudly (louder than talking or can be heard through closed doors)? 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 Specify any problems Hx of Preganancy in last 3 N/A 02/10/25 16:54 Months Nurse Filling Out Transfusion MGRIFFITH 02/10/25 16:54 & Questions: Date: 02/10/25 02/10/25 16:54 Time: 16:57 02/10/25 16:54 Patient unable to answer at this time (ie. confused, unrespo /Reproduction History /Reproductive History - parking meter collector: /Reproductive Hx- parking meter collector Hx Now Gestational Age (in weeks): EDC: Hx Hx Para Hx Section SAB Active Medications Active Medications: Current Medications Generic Name Dose Route Start Last Admin Trade Name Freq PRN Reason Stop Dose Admin Cefazolin Sodium 2 gm/ Sodium 110 mls @ 150 mls/hr 02/16/25 12:45 Chloride IV 02/16/25 13:28 INTRAOP ONE Lactated Ringer's 1,000 mls @ 15 mls/hr 02/16/25 10:45 02/16/25 11:10 IV 15 mls/hr .Q48H JUDD Administration PFSH Medical History (Updated 02/13/25 @ 00:01 by Background Davicky) Wears glasses Indwelling urethral catheter present Injury of head and neck TIA (transient ischemic attack) Former smoker History of echocardiogram Cardiology follow-up encounter Fatigue EAGLE (dyspnea on exertion) Abnormality of gait Ataxia Stroke SVT (supraventricular tachycardia) Pulmonary embolism and infarction Snoring Intracranial abscess Essential hypertension Elevated PSA Home Medications ?Medication ?Instructions ?Recorded ?Last Taken ?Type amlodipine 10 mg tablet (Norvasc) 10 mg PO DAILY 10/20/23 02/16/25 06:30 History aspirin 81 mg tablet,delayed 81 mg PO DAILY 10/20/23 02/10/25 History release (Adult Aspirin Regimen) lisinopril 20 mg tablet 20 mg PO DAILY 10/20/23 02/15/25 05:00 History clotrimazole 1 % topical cream 1 applic topical BID 02/01/25 Unknown History finasteride 5 mg tablet 5 mg PO DAILY 02/01/25 02/14/25 History tamsulosin 0.4 mg capsule 0.4 mg PO QHS 02/01/25 02/14/25 History garlic 5 mg PO DAILY 02/10/25 02/15/25 History Allergy/AdvReac Type Severity Reaction Status Date / Time No Known Allergies Allergy Verified 02/16/25 11:04 Family History Father Cancer Mother Alzheimer's disease Surgical History History of colonoscopy History of brain surgery Social History Smoking Status: Former smoker Smokeless tobacco user: other alcohol intake: never substance use type: does not use caffeine: Yes Type: coffee Number of servings: 3 Review of Systems (Anesthesia) ROS Narrative System reviewed and no additional complaints, except as documented. Physical Exam Const alert, oriented x3 and average body habitus Resp normal respiratory effort, normal air movement and clear to auscultation bilaterally Cardio regular rate, regular rhythm, no murmurs and diaphoretic
--- NOTE | 2025-02-16 11:32 | PCM.HP.STD ---
[facility] - General General Date of Service: 02/16/25 Chief Complaint: BPH with retention of urine [facility] Narrative CATERINA GRECO, is a 69 M who presents for transurethral resection of the prostate he has a very large obstructive prostate he has failed medical therapy has a catheter in place and not been able to urinate after several voiding trials. He is on maximal medical therapies organ to proceed with a transurethral resection of the prostate he will spend the night in the hospital [facility] Medical History (Updated 02/13/25 @ 00:01 by Background Matthew) Wears glasses Indwelling urethral catheter present Injury of head and neck TIA (transient ischemic attack) Former smoker History of echocardiogram Cardiology follow-up encounter Fatigue EAGLE (dyspnea on exertion) Abnormality of gait Ataxia Stroke SVT (supraventricular tachycardia) Pulmonary embolism and infarction Snoring Intracranial abscess Essential hypertension Elevated PSA Home Medications ?Medication ?Instructions ?Recorded ?Last Taken ?Type amlodipine 10 mg tablet (Norvasc) 10 mg PO DAILY 10/20/23 02/16/25 06:30 History aspirin 81 mg tablet,delayed 81 mg PO DAILY 10/20/23 02/10/25 History release (Adult Aspirin Regimen) lisinopril 20 mg tablet 20 mg PO DAILY 10/20/23 02/15/25 05:00 History clotrimazole 1 % topical cream 1 applic topical BID 02/01/25 Unknown History finasteride 5 mg tablet 5 mg PO DAILY 02/01/25 02/14/25 History tamsulosin 0.4 mg capsule 0.4 mg PO QHS 02/01/25 02/14/25 History garlic 5 mg PO DAILY 02/10/25 02/15/25 History Allergy/AdvReac Type Severity Reaction Status Date / Time No Known Allergies Allergy Verified 02/16/25 11:04 Family History Father Cancer Mother Alzheimer's disease Surgical History History of colonoscopy History of brain surgery Social History Smoking Status: Former smoker Smokeless tobacco user: other alcohol intake: never substance use type: does not use caffeine: Yes Type: coffee Number of servings: 3 Vital Signs Vital Signs Vital Signs: 02/16/25 11:06 02/16/25 11:06 02/16/25 11:21 Temperature 97.6 F L 97.6 F L Temperature Source Temporal Pulse Rate 59 L 59 L Respiratory Rate 16 16 Respiratory Pattern Normal Blood Pressure 148/65 H 148/65 H Blood Pressure Mean 92 Blood Pressure Source Monitor Blood Pressure Position Sitting Blood Pressure Location Left Arm Pulse Ox 97 97 Oxygen Delivery Method Room Air Weight Weight: 77 kg Body Mass Index (BMI) 25.0
[2025-02-16] MEDS: Cefazolin 2 GM in 0.9% Normal Saline (100mL Bag) 100 ML IV (11:58)
--- NOTE | 2025-02-16 12:45 | PROS_PTH ---
PATIENT: CATERINA GRECO LOC: MS3 U#:[id number] AGE/SX: 69/M ROOM: [place] RE02/16/[address]: Dr. Wally Myers MD : 1955 BED: 1 DIS: 02/17/2025 SPEC #: [id number] RECD: 02/16/25 15:20 STATUS: KLAUS BLOCK #: [id number] TREASURE: 02/16/25 12:[address]: Wally Myers DEPT: SURGICAL PATHOLOGY RECD BY: Milo Vasques ENTERED: 02/16/25 15:30 SP TYPE: TURP OTHR DR: Dr. Matthew Alford MD Tissues: A - Prostate, NOS Procedures: Surgery Specimen Level IV HEADER OPERATION: Transurethral resection, prostate PRE-OP DIAGNOSIS: Benign prostatic hyperplasia retention of urine TISSUE SUBMITTED: A- Prostate tissue MICROSCOPIC DIAGNOSIS A. Prostate, transurethral resection of prostate: * Fibromuscular and adenomatous hyperplasia MICROSCOPIC DESCRIPTION Slides are reviewed. GROSS DESCRIPTION A. Received in formalin in a container labeled with the patient's name, date of , and prostate tissue are multiple witt-pink, rubbery, and irregular fragments of soft tissue weighing 13.5 g and measuring 7.8 x 7.0 x 1.7 cm in aggregate. The majority is submitted in toto in A1-13 (the first 12 g are submitted entirely). [facility] 02-16-2025 CPT:71717
--- NOTE | 2025-02-16 13:30 | PCM.DC ---
Discharge Instructions Diet Discharge Diet: No restrictions DC O2, CPAP, BIPAP needs Home O2 Discharge instructions: No Dressing / Incision Discharge Activity: Return to Normal Activity and May Not Drive (while taking narcotic pain medications.) Dressing / Incision Call your doctor if you observe: Fever of 101 or Higher Follow Up Care Please Follow Up With: Wally Myers MD When: Call [phone] for an appointment Test Results: Test results from this visit will be discussed in further detail at your follow-up appointment, if applicable. Discharge Plan Admission Primary Reason for Your Visit: berhane Attending Provider: Wally Myers Primary Care Provider: Matthew Alford Instructions Patient Instructions: BERHANEP, BERHANE Home Recovery, [facility] Hospital Recovery Print Language: Trinidadian Discharge Orders/Prescriptions Prescriptions: New ciprofloxacin HCl [Cipro] 500 mg tablet 500 mg PO BID Qty: 14 0RF Continued amlodipine [Norvasc] 10 mg tablet 10 mg PO DAILY lisinopril 20 mg tablet 20 mg PO DAILY garlic 5 mg PO DAILY clotrimazole 1 % cream 1 applic topical BID Held aspirin [Adult Aspirin Regimen] 81 mg tablet,delayed release (DR/EC) 81 mg PO DAILY Hold Instructions: Resume on 03/02/25. Patient Comments: last dose 02/10/25 for surgery on 02/16/25 Discontinued tamsulosin 0.4 mg capsule 0.4 mg PO QHS finasteride 5 mg tablet 5 mg PO DAILY Other Ambulatory Orders: 12 Lead EKG (Routine) Timeframe: 20250214 Location: None Selected Ordered By: Dr. Naif Grayson Referrals / Follow Up: Wally Myers MD [Med Staff - Active Staff] - Matthew Alford MD [Primary Care Provider] - Disposition Disposition (needs filled in before D/C Order can be placed): Home, Self Care
--- NOTE | 2025-02-16 13:31 | OP.PCM_ITS ---
Operative Report (Standard) Operative Information Date of Procedure: 02/16/25 Pre-Operative Diagnosis: BPH with retention of urine Post-Operative Diagnosis: The same Surgery/Procedure Performed: Transurethral section of prostate endband cutter hand: No Type of Anesthesia: General RN Documented Start/Stop Times: Operation Date: 02/16/25 12:45 Case Time Into Pre-Op 02/16/25 10:34 Out of Pre-Op 02/16/25 11:56 Anesthesia Start 02/16/25 11:58 Into Room 02/16/25 11:58 Procedure Start 02/16/25 12:16 Procedure End 02/16/25 13:26 Procedure Start Time: 12:16 Procedure Stop Time: 13:32 Select all DRAINS/GRAFTS/IMPLANTS that apply: Drains Drain details: 22 Maltese three-way Figueroa Estimated Blood Loss: 10cc Specimen collected: No Description of surgery: Patient was taken back to the operating room at this with induction of anesthesia he was placed in dorsolithotomy position penis and testicles were prepped and draped in usual fashion Figueroa catheter been removed he was in retention of urine, I then went into the bladder with a 26 Maltese continuous- flow bipolar Olympus resectoscope identified the anatomy right left ureteral orifice large treating prostate the verumontanum I then started resecting the median lobe I resected back to the room I then resected both the left and right lobes of the prostate working my way back to the verumontanum I then carefully resected the verumontanum apical tissue and then carefully resected the roof of the tissue rope prostate tissue and then resected the roof on the right side on the left side and then I cauterized extensively after an hour resection had a nice wide open channel sphincter was intact did a flow test had a wide open flow I then cauterized obtain hemostasis placed a catheter in the bladder with continuous irrigation anesthetic was reversed and is taken back to the PACU in good condition to be kept overnight for irrigation and we will do a voiding trial in the morning Surgical Findings: Large prostate resected completely Complications Complications: No Admit VTE Documentation VTE Present on Admission: No VTE Mechan Device Prophylaxis: SCD's VTE Pharm Prophylaxis ordered?: No
--- NOTE | 2025-02-16 14:17 | PCM.POST.ANE ---
Anesthesia: Postop Eval I Current Vital Signs Temperature: 97.2 F Pulse Rate: 72 Blood Pressure: 112/67 Respiratory Rate: 16 Pulse Ox: 100 Oxygen Delivery Method: Room Air Assessment Airway patent: Yes Spontaneous unlabored respirations: Yes Mental status: Awake and Calm nausea: No Vomiting: No Anesthesia Complication: No Fluid Hydration Crystalloid volume administer (ml): 800 Total IV fluid infused: 800 Progress Note Anesthesia document: Postop Eval 1 completed: Yes
[2025-02-16] MEDS: 0.9% Normal Saline (1000mL) 1,000 ML 125 ML IV ×2 (14:57→22:23)
[2025-02-16] MEDS: Ondansetron 4 MG/2 ML Vial IV (15:12)
[2025-02-16] MEDS: 0.9% Saline Lock 10 ML Syringe IV (15:12)
--- NOTE | 2025-02-16 15:41 | POSTOPAN2_ITS ---
Anesthesia Postop Eval I Sum Postop Eval Completion status Anesthesia document: Postop Eval 1 completed: Yes Anesthesia Postop Eval I Summary Anesthesia Postop Eval I Summary: Anesthesia Postop Eval I: Assessment Summary Airway patent Yes 02/16/25 14:18 SUPERVISOR HEADING.MDOT Spontaneous unlabored Yes 02/16/25 14:18 SUPERVISOR HEADING.MDOT respirations Mental status Awake,Calm 02/16/25 14:18 SUPERVISOR HEADING.MDOT nausea No 02/16/25 14:18 SUPERVISOR HEADING.MDOT Vomiting No 02/16/25 14:18 SUPERVISOR HEADING.MDOT Anesthesia Postop Eval I: Fluid Summary Crystalloid volume administer 800 02/16/25 14:18 SUPERVISOR HEADING.MDOT (ml) Colloids volume administered ( ml) Blood Product volume administered (ml) Total IV fluid infused 800 02/16/25 14:18 SUPERVISOR HEADING.MDOT Anesthesia Postop Eval I: Summary Notes Anesthesia Complication No 02/16/25 14:18 SUPERVISOR HEADING.MDOT Anesthesia Complication Comment: Post-operative progress note Anesthesia: Postop Eval II Evaluation Mental status: Awake Pain Level: 0 nausea: No Vomiting: No Complications Anesthesia Complication: No
--- NOTE | 2025-02-16 15:41 | PCM.POSTANE2 ---
Anesthesia Postop Eval I Sum Postop Eval Completion status Anesthesia document: Postop Eval 1 completed: Yes Anesthesia Postop Eval I Summary Anesthesia Postop Eval I Summary: Anesthesia Postop Eval I: Assessment Summary Airway patent Yes 02/16/25 14:18 OPTICAL DESIGN ENGINEER.MDOT Spontaneous unlabored Yes 02/16/25 14:18 OPTICAL DESIGN ENGINEER.MDOT respirations Mental status Awake,Calm 02/16/25 14:18 OPTICAL DESIGN ENGINEER.MDOT nausea No 02/16/25 14:18 OPTICAL DESIGN ENGINEER.MDOT Vomiting No 02/16/25 14:18 OPTICAL DESIGN ENGINEER.MDOT Anesthesia Postop Eval I: Fluid Summary Crystalloid volume administer 800 02/16/25 14:18 OPTICAL DESIGN ENGINEER.MDOT (ml) Colloids volume administered ( ml) Blood Product volume administered (ml) Total IV fluid infused 800 02/16/25 14:18 OPTICAL DESIGN ENGINEER.MDOT Anesthesia Postop Eval I: Summary Notes Anesthesia Complication No 02/16/25 14:18 OPTICAL DESIGN ENGINEER.MDOT Anesthesia Complication Comment: Post-operative progress note Anesthesia: Postop Eval II Evaluation Mental status: Awake Pain Level: 0 nausea: No Vomiting: No Complications Anesthesia Complication: No
[2025-02-16] MEDS: Metoclopramide 10 MG/2 ML Vial IV (16:24)
[2025-02-16] MEDS: Docusate Sodium 100 MG Capsule 200 MG PO (20:11)
[2025-02-16] MEDS: Ciprofloxacin 400 MG/200 ML BAG 200 MG IV (20:11)
[2025-02-17 02:41] VITALS: BP 143/64; PULSE 64; RESP 16; TEMP 36.8; O2SAT 98
[2025-02-17] MEDS: Ciprofloxacin 400 MG/200 ML BAG 200 MG IV (05:17)
[2025-02-17] MEDS: 0.9% Normal Saline (1000mL) 1,000 ML 125 ML IV (05:17)
[2025-02-17 06:45] LABS: Absolute Lymphocyte Count 1.47 X10^3/uL (0.83-4.51); Absolute Neutrophil Count 12.4 X10^3/uL (2.0-7.7); Basophil# 0.02 X10^3/uL; Basophil% 0.1 % (0-1); Eosinophil# 0.09 X10^3/uL; Eosinophils% 0.6 % (0-5); Hematocrit 42.6 % (40-54); Hemoglobin 14.4 g/dL (13.0-16.5); Lymphocyte # 1.47 X10^3/ul (0.83-4.51); Lymphocyte % 9.8 % (19-41); Mean Corp Hgb Conc 33.8 g/dL (32-36); Mean Corpuscular Hgb 31.1 pg (27.0-32.0); Mean Platelet Vol. 8.8 fl (6.2-12.0); Monocyte# 0.94 X10^3/uL; Monocyte% 6.3 % (0-10); NRBC Flagged by Analyzer 0 % (0-5); Neutrophil % 82.7 % (47-70); Platelet Count 224 K/mm3 (150-450); RBC Distribution Width CV 13.7 % (11.6-14.6); RBC Distribution Width SD 46.1 fl (35.1-43.9); Red Blood Count 4.63 M/mm3 (4.6-6.2)
[2025-02-17 07:12] LABS: Anion Gap 10 (5-15); BUN 14 mg/dL (4-19); BUN/Creat Ratio 16.5 RATIO (10-20); Calcium,Total 8.9 mg/dL (7.6-11.0); Carbon Dioxide 22.4 mmol/L (21.0-32.0); Chloride 107 mmol/L (98-108); Creatinine, Serum 0.87 mg/dL (0.70-1.20); EST Glomerular Filtration Rate 94 (>60); Estimated Creatinine Clearance 80.14 ml/min (50-250); Glucose 130 mg/dL (70-99); Potassium 4.1 mmol/L (3.3-5.1); Sodium Level 140 mmol/L (133-145)
--- NOTE | 2025-02-17 07:24 | PCM.DC.SUM ---
Providers Date of Admission: 02/16/25 Primary Care Physician: Dr. Matthew Alford MD Reason For Visit: POST OP TURP Medications at Discharge Home Medications amlodipine 10 mg tablet (Norvasc) 10 mg PO DAILY 10/20/23 aspirin 81 mg tablet,delayed release (Adult Aspirin Regimen) 81 mg PO DAILY 10/20/23 Held on 02/16/25. Instructions: Resume on 03/02/25. lisinopril 20 mg tablet 20 mg PO DAILY 10/20/23 clotrimazole 1 % topical cream 1 applic topical BID 02/01/25 garlic 5 mg PO DAILY 02/10/25 ciprofloxacin HCl 500 mg tablet (Cipro) 500 mg PO BID #14 tabs 02/16/25 Hospital Course Operations TURP Physical Exam Const alert and oriented x3 General Appearance: cooperative HEENT normocephalic and head/scalp atraumatic Eyes PERRL and EOMs intact bilaterally Neck supple, no JVD and no carotid bruits Resp normal respiratory effort, normal air movement and clear to auscultation bilaterally Cardio regular rate and no murmurs GI normal to inspection, nondistended, normoactive bowel sounds and soft to palpation Extremity normal capillary refill General Extremity: no tenderness to palpation of joints or extremities; Negative for edema Skin no rashes or lesions noted and no wounds General Skin Exam: no breakdown Neuro CN's II-XII intact bilaterally Psych affect normal Appearance: appropriate Weight / BMI Weight Weight: 77 kg Body Mass Index (BMI) 25.0 ABG / Lab / Microbiology Data 02/17/25 05:18 02/17/25 05:18 Laboratory: Laboratory Results - last 24 hr 02/17/25 05:18: WBC 15.0 H, RBC 4.63, Hgb 14.4, Hct 42.6, MCV 92.0, MCH 31.1, MCHC 33.8, RDW Std Deviation 46.1 H, RDW Coeff of Judi 13.7, Plt Count 224, MPV 8.8, Immature Gran % (Auto) 0.500, Neut % (Auto) 82.7 H, Lymph % (Auto) 9.8 L, [place] % (Auto) 6.3, Eos % (Auto) 0.6, Baso % (Auto) 0.1, Absolute Neuts (auto) 12.4 H, Absolute Lymphs (auto) 1.47, Nucleated RBC % 0, Sodium 140, Potassium 4.1, Chloride 107, Carbon Dioxide 22.4, Anion Gap 10, BUN 14, Creatinine 0.87, Estim Creat Clear Calc 80.14, Est GFR (MDRD) Non-Af 94, BUN/Creatinine Ratio 16.5, Glucose 130 H, Calcium 8.9 D/C Instructions Discharge Diet: No restrictions Call your doctor if you observe: Fever of 101 or Higher DC O2, CPAP, BIPAP Needs Home O2 Discharge instructions: No Please Follow Up With: Wally Myers MD When: Call [phone] for an appointment Meaningful Use Info Meaningful Use Meaningful Use Diagnoses (Choose all that apply): None applicable Ischemic Stroke Statin Dosing Therapy Reference: STATIN DOSE THERAPY REFERENCE: * Patients > 75 years receive moderate or high dose statin therapy. * Patients 75 years or YOUNGER should receive HIGH intensity statin dose unless contraindicated. You will be required to document reason for non-treatment if statin daily dose does not meet guidelines. HIGH DOSE STATIN THERAPY DAILY Atorvastatin > than or = to 40 mg Rosuvastatin > than or = to 20 mg Amlodipine + Atorvastatin > than or = to 2.5/40 mg Ezetimibe + Simvastatin 10/80 mg Simvastatin 80mg Discharge Plan Admission Admit Date/Time: 02/16/25 13:52 Primary Reason for Your Visit: marlen Attending Provider: Wally Myers Primary Care Provider: Matthew Alford Instructions Patient Instructions: MARLEN HARRIS [facility], [facility] Discharge Orders/Prescriptions Prescriptions: New ciprofloxacin HCl [Cipro] 500 mg tablet 500 mg PO BID Qty: 14 0RF Continued amlodipine [Norvasc] 10 mg tablet 10 mg PO DAILY lisinopril 20 mg tablet 20 mg PO DAILY garlic 5 mg PO DAILY clotrimazole 1 % cream 1 applic topical BID Held aspirin [Adult Aspirin Regimen] 81 mg tablet,delayed release (DR/EC) 81 mg PO DAILY Hold Instructions: Resume on 03/02/25. Patient Comments: last dose 02/10/25 for surgery on 02/16/25 Discontinued tamsulosin 0.4 mg capsule 0.4 mg PO QHS finasteride 5 mg tablet 5 mg PO DAILY Other Ambulatory Orders: 12 Lead EKG (Routine) Timeframe: 20250214 Location: None Selected Ordered By: Dr. Naif Grayson Referrals / Follow Up: Wlaly Myers MD [Med Staff - Active Staff] - Matthew Alford MD [Primary Care Provider] - Disposition Discharge Orders: Discharge Patient (Routine); Ordered 02/17/25 Ordered By: Dr. Wally Myers
[2025-02-17 07:35] VITALS: O2SAT 95
[2025-02-17 07:58] VITALS: BP 161/64; PULSE 67; RESP 16; TEMP 36.3; O2SAT 97
[2025-02-17] MEDS: Docusate Sodium 100 MG Capsule 200 MG PO (07:59)
[2025-02-17] MEDS: Lisinopril 20 MG Tablet PO (08:00)
[2025-02-17] MEDS: amLODIPine 10 MG Tablet PO (08:00)
--- NOTE | 2025-02-17 10:05 | CASEMGMT ---
GLORIA CHURCHILL NOTE: Discharge order is in. RN CM to room. Pt up ambulating in room ad jose eduardo w/out difficulty. He was just returning from the bathroom, where he stated he attempted to void, but was unable to, stating there was just some blood. RN, Adrianna, aware. Pt denies having any discharge needs or concerns. He is aware Rx has been sent to [facility]. He states his sister will be taking him home and they can stop and picker and packer the Rx today. He is aware [facility] is to be on hold until 03/02 & aware to call and schedule appt for f/u in Dr Myers's office. Darlin LOPEZN GLORIA CM
== END 2025-02-17 11:52 | disposition home or self-care (01) ==
LOC: SDC 14:27 → MS3 14:27
PROVIDERS: Admitting Provider Urology; PCP Family Medicine; Referring Provider Urology; Visit Provider Urology
PROC: (CPT 52601; principal; 2025-02-16 12:35)
DX: N40.1 Benign prostatic hyperplasia with lower urinary tract symptoms (principal); Z79.82 Long term (current) use of aspirin; Z87.891 Personal history of nicotine dependence; I10 Essential (primary) hypertension; R33.8 Other retention of urine; N13.8 Other obstructive and reflux uropathy; Z86.711 Personal history of pulmonary embolism; Z79.899 Other long term (current) drug therapy
CPT/HCPCS: 52601; 00914; 36415; 51702; 80048; 85025; 88305; 93005; 96361; 96365; 96366; 96375; 99221; A4216; G0378; J0744; J2405